=== PATIENT | female | born 1975 | race Caucasian/White ===

== ENCOUNTER 2017-09-26 11:43 | Emergency (ER) | payer BC ==
[2017-09-26 12:02] VITALS: TEMP 98.9; BMI 81.8
--- NOTE | 2017-09-26 12:04 | PDOC ---
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 ) - History of Present Illness Timing/Duration: 24 hours, intermittent Severity: mild, moderate Modifying Factors: improves with: eating, rest Associated Symptoms: reports: denies symptoms <Hima Isaac S - Last Filed: 09/27/17 19:56> - General Chief Complaint: Chest Pain Stated Complaint: chest pain Time Seen by Provider: 09/26/17 11:47 Past History <Amy Contreras - Last Filed: 09/26/17 14:32> - Travel Traveled outside of the country in the last 30 days: No Close contact w/someone who was outside of country & ill: No <Hima Isaac - Last Filed: 09/27/17 19:56> - Past Medical History Allergies/Adverse Reactions: Allergies Allergy/AdvReac Type Severity Reaction Status Date / Time No Known Allergies Allergy Verified 09/26/17 11:49 Home Medications: Ambulatory Orders NK [No Known Home Medication] 09/26/17 Review of Systems - Review of Systems Able to Perform ROS?: Yes Is the patient limited [place] proficient: Yes Constitutional: No: Symptoms Reported, See HPI, Chills, Diaphoresis, Fever, Loss of Appetite, Malaise, Night Sweats, Weakness, Weight Stable, Unintentional Wgt. Loss, Unexplained wgt Loss, Other HEENTM: No: Symptoms Reported, See HPI, Eye Pain, Blurred Vision, Tearing, Recent change in vision, Double Vision, Cataracts, Ear Pain, Ocular Prothesis, Ear Discharge, Nose Pain, Nose Congestion, Tinnitus, Nose Bleeding, Hearing Loss , Throat Pain, Throat Swelling, Mouth Pain, Dental Problems, Difficulty Swallowing, Mouth Swelling, Other Respiratory: No: Symptoms reported, See HPI, Cough, Orthopnea, Shortness of Breath, SOB with Exertion, SOB at Rest, Stridor, Wheezing, Productive cough, Hemoptysis, Other Cardiac (ROS): Yes: See HPI ABD/GI: Yes: See HPI Musculoskeletal: No: Symptoms Reported, See HPI, Back Pain, Gout, Joint Pain, Joint Swelling, Muscle Pain, Muscle Weakness, Neck Pain, Joint Stiffness, Other Integumentary: No: Symptoms Reported, See HPI, Bruising, Change in Color, Change in Hair/Nails, Dryness, Erythema, Flushing, Lesions, Lumps, Pallor, Pruritus, Rash, Sweating, Other Hematologic/Lymphatic: No: Symptoms Reported, See HPI, Anemia, Blood Clots, Easy Bleeding, Easy Bruising, Bleeding Diathesis, Lymph Node Abnormalities, Swollen Glands, Other All Other Systems: Reviewed and Negative <Modeyvia,Remus S - Last Filed: 09/27/17 19:56> *Physical Exam - Vital Signs Last Vital Signs Temp Pulse Resp BP Pulse Ox 98.9 F 93 H 18 125/90 100 09/26/17 11:44 09/26/17 11:44 09/26/17 11:44 09/26/17 11:44 09/26/17 11:44 <Amy Contreras - Last Filed: 09/26/17 14:32> - Physical Exam General Appearance: Yes: Nourished, Appropriately Dressed. No: Apparent Distress HEENT: positive: ESTRELLITA Neck: positive: Normal Thyroid, Supple. negative: Carotid bruit Respiratory/Chest: positive: Lungs Clear, Normal Breath Sounds Cardiovascular: positive: Regular Rate, S1, S2 Female Pelvic Exam: negative: Urethra Gastrointestinal/Abdominal: positive: Normal Bowel Sounds Musculoskeletal: positive: Normal Inspection Extremity: positive: Normal Capillary Refill, Tender Integumentary: positive: Normal Color, Dry Neurologic: positive: Fully Oriented, Alert, Normal Mood/Affect <Moucha,Remus S - Last Filed: 09/27/17 19:56> Heart Score/ECG Review - Age Age: </= 45 - Risk Factors Risk Factors Heart Score: No Hx Diabetes, No Smoking History - ECG Intrepretation Rhythm: Regular Rhythm - [facility]: Normal - P and VT Prominent R with upright T in V1 (true posterior NM): No Delta Wave(s) Present: No WPW: No - ECG Impressions Torsades claribel Pointes: No WPW: No <Modeyvia,Remus S - Last Filed: 09/27/17 19:56> ED Treatment Course - LABORATORY CBC & Chemistry Diagram: 09/26/17 12:21 09/26/17 12:21 - ADDITIONAL ORDERS Additional order review: Laboratory Results 09/26/17 09/26/17 09/26/17 12:21 12:21 12:21 PT with INR 13.8 H INR 1.24 H Sodium 136 Potassium 3.9 Chloride 104 Carbon Dioxide 23 Anion Gap 9 BUN 8 Creatinine 0.5 L Creat Clearance w eGFR > 60 Random Glucose 104 Calcium 9.0 Total Bilirubin 0.5 AST 24 ALT 18 Alkaline Phosphatase 37 Troponin I < 0.03 Total Protein 6.7 Albumin 4.0 09/26/17 12:21 RBC 3.75 MCV 75.3 L MCHC 31.5 L RDW 15.1 MPV 8.8 Neutrophils % 66.5 Lymphocytes % 25.3 Monocytes % 6.3 Eosinophils % 1.1 Basophils % 0.8 <Amy Contreras - Last Filed: 09/26/17 14:32> - LABORATORY CBC & Chemistry Diagram: 09/26/17 12:21 09/26/17 12:21 <Hima Isaac S - Last Filed: 09/27/17 19:56> Medical Decision Making - Critical Care Time Total Critical Care Time (minutes): 30 Critical Care Statement: The care of this patient involved high complexity decision making to prevent further life threatening deterioration of the patient 's condition and/or to evaluate & treat vital organ system(s) failure or risk of failure. - Medical Decision Making Patient seen immediately from arrival. EKG done. Regular sinus rhythm. 86/min. Blood test done. X ray done. 2:15 experienced another discomfort in the epigastric area EKG 71/min. 09/26/17 14:32 <Amy Contreras - Last Filed: 09/26/17 14:32> - Critical Care Time Total Critical Care Time (minutes): 30 Critical Care Statement: The care of this patient involved high complexity decision making to prevent further life threatening deterioration of the patient 's condition and/or to evaluate & treat vital organ system(s) failure or risk of failure. - Medical Decision Making Patient observed for 4 hours every hour by the hour, Continuous cardiac monitoring Feels comfortable <Hima Isaac S - Last Filed: 09/27/17 19:56> *DC/Admit/Observation/Transfer <Amy Contreras - Last Filed: 09/26/17 14:32> - Discharge Dispostion Admit: No <PonchoHima Ghassan - Last Filed: 09/27/17 19:56> Diagnosis at time of Disposition: Anemia due to blood loss, chronic, Chest pain in adult - Discharge Dispostion Disposition: HOME Condition at time of disposition: Stable - Patient Instructions Printed Discharge Instructions: DI for Atypical Chest Pain, DI for Iron Deficiency Anemia-Adult Additional Instructions: Discuss with your bean dumper potential need for stress test. Discuss with your Perforator Typist MD about controlling the blood loss. Return to ER if any chest discomfort
[2017-09-26 12:29] LABS: BASO % 0.8 % (0-2.0); EOS % 1.1 % (0-4.5); HEMATOCRIT 28.3 % (32.4-45.2); HEMOGLOBIN 8.9 GM/dl (10.7-15.3); LYMPH % 25.3 % (8-40); MCH 23.7 pg (25.7-33.7); MCHC 31.5 g/dl (32.0-36.0); MEAN CELL VOLUME 75.3 fl (80-96); MEAN PLT VOLUME 8.8 fl (7.5-11.1); MONO % 6.3 % (3.8-10.2); NEUT % 66.5 % (42.8-82.8); PLATELET COUNT 302 K/MM3 (134-434); RBC 3.75 M/mm3 (3.60-5.2); RDW 15.1 % (11.6-15.6); WHITE BLOOD COUNT 4.9 K/mm3 (4.0-10.8)
[2017-09-26 13:31] LABS: ALK PHOS 37 U/L (32-92); ANION GAP 9 (8-16); BILIRUBIN,TOTAL 0.5 mg/dl (0.2-1.0); BLOOD UREA NITROGEN 8 mg/dl (7-18); CHLORIDE 104 mmol/L (98-107); CO2 23 mmol/L (22-28); GLUCOSE,RANDOM 104 mg/dl (74-106); SGOT/AST 24 U/L (10-42); SGPT/ALT 18 U/L (10-40); SODIUM 136 mmol/L (136-145); TOT PROT 6.7 g/dl (6.4-8.3)
[2017-09-26 13:57] LABS: INR 1.24 (0.82-1.09); PROTHROMBIN TIME (PATIENT) 13.8 SEC (10.2-13.0)
[2017-09-26 13:58] LABS: CREATININE 0.5 mg/dl (0.6-1.3); POTASSIUM 3.9 mmol/L (3.5-5.1)
[2017-09-26 15:21] VITALS: BP 117/68; PULSE 82
--- NOTE | 2017-09-27 15:58 | EKG ---
Test Reason : Blood Pressure : / mmHG Vent. Rate : 071 BPM Atrial Rate : 071 BPM P-R Int : 158 ms QRS Dur : 084 ms QT Int : 432 ms P-R-T Axes : 067 035 022 degrees QTc Int : 469 ms NORMAL SINUS RHYTHM NORMAL ECG NO PREVIOUS ECGS AVAILABLE Confirmed by MOHAN ARRIAGA, GHULAM ([id number]) on 09/27/2017 3:57:30 PM Referred By: FINESSE BRIDGES Confirmed By:GHULAM PRESTON MD
== END 2017-09-26 15:19 | disposition home or self-care (01) ==
LOC: FER 11:43
DX: D50.0 Iron deficiency anemia secondary to blood loss (chronic) (principal); R07.89 Other chest pain
CPT/HCPCS: 36415; 71045-TC-FY; 80053; 84484; 85025; 85610; 93005; 93970-TC; 99283-25

== ENCOUNTER 2018-09-20 09:42 | Observation (INO) | payer BC ==
--- NOTE | 2018-09-20 09:52 | PDOC ---
History of Present Illness - General Chief Complaint: Pain Stated Complaint: LEFT UPPER BACK & CHEST PAIN Time Seen by Provider: 09/20/18 09:52 History Source: Patient Exam Limitations: No Limitations - History of Present Illness Initial Comments: 09/20/18 10:08 Pt presents to the ED complaining of a one day history of pressure like pain in the middle of her upper back, as well as a several hour history of central chest pressure. Patient stats that she was in her usual state of health until last night, when she began to experience pressure between her shoulder blades that was constant, non radiating and moderate in severity. This was accompanied by a feeling of restlessness, and some mild, central discomfort in her chest. These symptoms improved and she was able to go to work this AM. While at work, she experienced another episode of chest discomfort and went to the nurse's office. The nurse found her blood pressure to be high and insisted that she come to the ED for evaluation. The symptoms have now completely resolved. Denies shortness of breath, diaphoresis, lightheadness, syncope, nausea or vomiting. 09/20/18 10:43 Past History - Past Medical History Allergies/Adverse Reactions: Allergies Allergy/AdvReac Type Severity Reaction Status Date / Time No Known Allergies Allergy Verified 09/20/18 09:56 Home Medications: Ambulatory Orders Naproxen Sodium [Aleve] 220 mg PO BID PRN 09/20/18 Tranexamic Acid 2 tab PO TID PRN 09/20/18 Anemia: Yes (iron deficiancy) COPD: No Diabetes: No - Suicide/Smoking/Psychosocial Hx Smoking History: Never smoked Hx Alcohol Use: No Drug/Substance Use Hx: No Substance Use Type: None Review of Systems - Review of Systems Able to Perform ROS?: Yes Is the patient limited [place] proficient: No Constitutional: No: Symptoms Reported, See HPI, Chills, Diaphoresis, Fever, Loss of Appetite, Malaise, Night Sweats, Weakness, Weight Stable, Unintentional Wgt. Loss, Unexplained wgt Loss, Other HEENTM: No: Symptoms Reported, See HPI, Eye Pain, Blurred Vision, Tearing, Recent change in vision, Double Vision, Cataracts, Ear Pain, Ocular Prothesis, Ear Discharge, Nose Pain, Nose Congestion, Tinnitus, Nose Bleeding, Hearing Loss , Throat Pain, Throat Swelling, Mouth Pain, Dental Problems, Difficulty Swallowing, Mouth Swelling, Other Respiratory: No: Symptoms reported, See HPI, Cough, Orthopnea, Shortness of Breath, SOB with Exertion, SOB at Rest, Stridor, Wheezing, Productive cough, Hemoptysis, Other Cardiac (ROS): Yes: Chest Tightness. No: Symptoms Reported, See HPI, Chest Pain , Edema, Irregular Heart Rate, Lightheadedness, Palpitations, Syncope, Other ABD/GI: No: Symptoms Reported, See HPI, Abdominal Distended, Abd. Pain w/ defecation, Blood Streaked Bowels, Constipated, Diarrhea, Difficulty Swallowing , Nausea, Poor Appetite, Poor Fluid Intake, Rectal Bleeding, Vomiting, Indigestion, Abdominal cramping, Tarry Stools, Other : No: Symptoms Reported, See HPI, Burning, Dysuria, Discharge, Frequency, Flank Pain, Hematuria, Incontinence, Pain, Urgency, Testicular Mass, Testicular Swelling, Lesions, Testicular Pain, Other Musculoskeletal: No: Symptoms Reported, See HPI, Back Pain, Gout, Joint Pain, Joint Swelling, Muscle Pain, Muscle Weakness, Neck Pain, Joint Stiffness, Other Integumentary: No: Symptoms Reported, See HPI, Bruising, Change in Color, Change in Hair/Nails, Dryness, Erythema, Flushing, Lesions, Lumps, Pallor, Pruritus, Rash, Sweating, Other *Physical Exam - Physical Exam General Appearance: Yes: Nourished, Appropriately Dressed HEENT: positive: Normal Voice Neck: positive: Supple Respiratory/Chest: positive: Lungs Clear, Normal Breath Sounds. negative: Chest Tender, Respiratory Distress, Accessory Muscle Use, Labored Respiration, Rapid RR, Decreased Breath Sounds, Paradoxal Breathing, Crackles, Rales, Rhonchi , Stridor, Wheezing, Hyperresonant, Dullness, Plerual Rub, Other Cardiovascular: positive: Regular Rhythm, Regular Rate, S1, S2 Gastrointestinal/Abdominal: positive: Flat, Soft. negative: Tender, Organomegaly, Pulsatile Mass, Increased Bowel Sounds, Decreased BS, Protuberent , Distended, Guarding, Rebound, Tenderness, Hernia, Mass, Hepatomegaly, Spleenomegaly, Other Musculoskeletal: positive: Normal Inspection Extremity: positive: Normal Inspection, Normal Range of Motion Integumentary: positive: Normal Color, Dry, Warm Neurologic: positive: Fully Oriented, Alert, Normal Mood/Affect ED Treatment Course - LABORATORY CBC & Chemistry Diagram: 04/05/19 11:22 09/20/18 10:30 Medical Decision Making - Medical Decision Making 09/20/18 10:48 Pt presents to the ED complaining of chest pressure and upper back pressure that have now resolved. PERC negative. HEART score will be 0 if troponin is negative. Will check troponin and likely discharge home if negatve. *DC/Admit/Observation/Transfer Diagnosis at time of Disposition: Anemia due to blood loss, chronic, Chest pain in adult - Discharge Dispostion Condition at time of disposition: Good Decision to Admit order: Yes - Referrals Referrals: Marium Sharp [Primary Care Provider] - - Patient Instructions - Post Discharge Activity
[2018-09-20 10:04] VITALS: BMI 26.4
[2018-09-20 10:57] LABS: ALBUMIN 4.3 g/dl (3.4-5.0); ALK PHOS 42 U/L (45-117); ANION GAP 8 MMOL/L (8-16); BLOOD UREA NITROGEN 11 mg/dl (7-18); CALCIUM 8.7 mg/dl (8.5-10); CHLORIDE 105 mmol/L (98-107); CO2 24 mmol/L (21-32); CREATININE 0.4 mg/dl (0.55-1.3); GLUCOSE,RANDOM 101 mg/dl (74-106); POTASSIUM 3.7 mmol/L (3.5-5.1); SGOT/AST 22 U/L (15-37); SGPT/ALT 24 U/L (13-61); SODIUM 137 mmol/L (136-145); TOT PROT 7.1 g/dl (6.4-8.2)
[2018-09-20] MEDS ORDERED: KETOROLAC TROMETHAMINE 30 MG/1 ML VIAL IVPUSH ONE (11:05)
[2018-09-20] MEDS ORDERED: KETOROLAC TROMETHAMINE 30 MG/1 ML VIAL ONE (11:06)
[2018-09-20 11:20] LABS: HEMATOCRIT 22.2 % (32.4-45.2); MCHC 28.8 g/dl (32.0-36.0); MEAN CELL VOLUME 56.5 fl (80-96); MEAN PLT VOLUME 10.5 fl (7.5-11.1); PLATELET COUNT 403 K/MM3 (134-434); RBC 3.93 M/mm3 (3.60-5.2); RDW 18.7 % (11.6-15.6); WHITE BLOOD COUNT 4.6 K/mm3 (4.0-10.8)
[2018-09-20 11:33] LABS: ADD RBC MORPHOLOGY YES; MCH 16.3 pg (25.7-33.7)
[2018-09-20 11:34] LABS: HEMOGLOBIN 6.4 GM/dl (10.7-15.3)
[2018-09-20 12:00] LABS: ANISOCYTOSIS 3+
[2018-09-20 12:01] LABS: OVALOCYTE 1+; PLATELET ESTIMATE INCREASED; TEAR DROP CELLS 1+
[2018-09-20 12:31] LABS: MEAN PLT VOLUME 8.9 fl (7.5-11.1)
[2018-09-20 12:35] LABS: BASO % 0.7 % (0-2.0); EOS % 1.4 % (0-4.5); HEMATOCRIT 21.1 % (32.4-45.2); LYMPH % 17.8 % (8-40); MCHC 28.5 g/dl (32.0-36.0); MEAN CELL VOLUME 56.5 fl (80-96); MONO % 4.8 % (3.8-10.2); NEUT % 75.3 % (42.8-82.8); PLATELET COUNT 237 K/MM3 (134-434); RBC 3.73 M/mm3 (3.60-5.2); WHITE BLOOD COUNT 5.4 K/mm3 (4.0-10.8)
[2018-09-20 12:38] LABS: MCH 16.1 pg (25.7-33.7)
--- NOTE | 2018-09-20 14:27 | HP ---
CHIEF COMPLAINT: Upper back pain and chest pain PCP: Dr. Marium Sharp, [place], [place] [phone] NATIONAL SALES ASSOCIATE: Dr. Panda, [place], [place] [phone] Bicycle Taxi Driver: Dr. Esau Cade, [facility] HISTORY OF PRESENT ILLNESS: 43 year-old female with a PMH significant for menorrhagia, uterine fibroids, iron deficiency anemia, Vitamin D deficiency, IBS, and GERD. Patient presented to the ED with complaint of chest pain. Last night patient experienced pain between her shoulder blades with she described as a tightness. She went to bed and woke up during the night with a feeling of her heart racing. She went back to sleep. 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 While at work she developed left-sided chest pain which radiated to the left axilla. She describes the pain as a tightness. She went to the nurse and her BP was 180/100. She came to the ED where she had another episode of between the shoulders back pain and left chest pain/pressure. Patient reports that the back pain last night was associated with sweating, but no episodes since. She has very mild b/l pedal edema. Patient has has been taking tranexamic acid for several years for her heavy periods. Menstruates every 28-30 days, lasts 7-9 days. Up until several months ago, she regularly passed very large clots. LMP 09/17/18. Has never been transfused. ER course was notable for: (1) Hgb 6.0, MCV 56.5 (2) ECG: sinus rhythm (3) Troponin neg x 1 (4) CXR: unremarkable Recent Travel: No PAST MEDICAL HISTORY: Menorrhagia Uterine fibroids Iron deficiency anemia Vitamin D deficiency IBS GERD Hemorrhoids PAST SURGICAL HISTORY: D&C x 3 years ago Colonoscopy 2006 (benign polyps) Social History: Single, school patrol Smoking: never Alcohol: occasional Drugs: no Family History: mother 79 with afib, hysterectomy 40s unknown reason; father 85 Stage III melanoma, HTN, TIA, perforated ulcer; brother 42 a&w; sister 47 a&w Allergies No Known Allergies Allergy (Verified 09/20/18 09:56) HOME MEDICATIONS: Home Medications Medication Instructions Recorded Naproxen Sodium [Aleve] 220 mg PO BID PRN 09/20/18 Tranexamic Acid 2 tab PO TID PRN 09/20/18 REVIEW OF SYSTEMS CONSTITUTIONAL: +fatigue Absent: fever, chills, diaphoresis, generalized weakness, malaise, loss of appetite, weight change HEENT: Absent: rhinorrhea, nasal congestion, throat pain, throat swelling, difficulty swallowing, mouth swelling, ear pain, eye pain, visual changes CARDIOVASCULAR: +left sided chest pain, upper back pain, rapid heart beat Absent: chest pain, syncope, palpitations, irregular heart rate, lightheadedness , peripheral edema RESPIRATORY: Absent: cough, shortness of breath, dyspnea with exertion, orthopnea, wheezing, stridor, hemoptysis GASTROINTESTINAL: Absent: abdominal pain, abdominal distension, nausea, vomiting, diarrhea, constipation, melena, hematochezia GENITOURINARY: Absent: dysuria, frequency, urgency, hesitancy, hematuria, flank pain, genital pain MUSCULOSKELETAL: Absent: myalgia, arthralgia, joint swelling, back pain, neck pain SKIN: Absent: rash, itching, pallor HEMATOLOGIC/IMMUNOLOGIC: Absent: easy bleeding, easy bruising, lymphadenopathy, frequent infections ENDOCRINE: Absent: unexplained weight gain, unexplained weight loss, heat intolerance, cold intolerance NEUROLOGIC: Absent: headache, focal weakness or paresthesias, dizziness, unsteady gait, seizure, mental status changes, bladder or bowel incontinence PSYCHIATRIC: Absent: anxiety, depression, suicidal or homicidal ideation, hallucinations. PHYSICAL EXAMINATION Vital Signs - 24 hr 09/20/18 09/20/18 09/20/18 09:50 11:10 14:06 Temperature 98.3 F 99.0 F Pulse Rate 102 H 84 Pulse Rate [ 72 Right Radial] Respiratory 18 16 16 Rate Blood Pressure 140/92 120/76 Blood Pressure 123/75 [Left Arm] O2 Sat by Pulse 100 100 99 Oximetry (%) GENERAL: Awake, alert, and fully oriented, in no acute distress. HEAD: Normal with no signs of trauma. EYES: Pupils equal, round and reactive to light, extraocular movements intact, sclera anicteric, pale conjunctiva. No lid lag. LUNGS: Breath sounds equal, clear to auscultation bilaterally. No wheezes, and no crackles. No accessory muscle use. HEART: Regular rate and rhythm, S1 and S2 +systolic murmur ABDOMEN: Soft, nontender, not distended, normoactive bowel sounds MUSCULOSKELETAL: Normal range of motion at all joints. No bony deformities or tenderness. No CVA tenderness. UPPER EXTREMITIES: 2+ pulses, warm, well-perfused. No cyanosis. No clubbing. No peripheral edema. LOWER EXTREMITIES: 2+ pulses, warm, well-perfused. No calf tenderness. Trace pedal edema NEUROLOGICAL: Cranial nerves II-XII intact. Normal speech. PSYCHIATRIC: Cooperative. Good eye contact. Appropriate mood and affect. SKIN: Pale, warm, dry Laboratory Results - last 24 hr 09/20/18 09/20/18 09/20/18 10:30 10:30 10:30 WBC 4.6 RBC 3.93 Hgb 6.4 L* Hct 22.2 L D MCV 56.5 L D MCH 16.3 L MCHC 28.8 L RDW 18.7 H D Plt Count 403 MPV 10.5 Absolute Neuts (auto) 3.5 Neutrophils % No Result Required. Neutrophils % (Manual) 80.0 Lymphocytes % No Result Required. Lymphocytes % (Manual) 15.0 Monocytes % Monocytes % (Manual) 5 Eosinophils % Basophils % Hypochromia 3+ Platelet Estimate Increased Poikilocytosis 3+ Anisocytosis 3+ Microcytosis 2+ Tear Drop Cells 1+ Ovalocytes 1+ Fragmented RBCs 1+ Schistocytes Few Sodium 137 Potassium 3.7 Chloride 105 Carbon Dioxide 24 Anion Gap 8 BUN 11 Creatinine 0.4 L Creat Clearance w eGFR 172.61 Random Glucose 101 Calcium 8.7 Total Bilirubin 1.0 AST 22 ALT 24 Alkaline Phosphatase 42 L Creatine Kinase 63 Troponin I < 0.03 Total Protein 7.1 Albumin 4.3 Crossmatch 09/20/18 09/20/18 11:22 12:53 WBC 5.4 RBC 3.73 Hgb 6.0 L* Hct 21.1 L MCV 56.5 L MCH 16.1 L MCHC 28.5 L RDW 19.0 H Plt Count 237 MPV 8.9 Absolute Neuts (auto) 4.0 Neutrophils % 75.3 Neutrophils % (Manual) Lymphocytes % 17.8 Lymphocytes % (Manual) Monocytes % 4.8 Monocytes % (Manual) Eosinophils % 1.4 Basophils % 0.7 Hypochromia Platelet Estimate Poikilocytosis Anisocytosis Microcytosis Tear Drop Cells Ovalocytes Fragmented RBCs Schistocytes Sodium Potassium Chloride Carbon Dioxide Anion Gap BUN Creatinine Creat Clearance w eGFR Random Glucose Calcium Total Bilirubin AST ALT Alkaline Phosphatase Creatine Kinase Troponin I Total Protein Albumin Crossmatch See Detail ASSESSMENT/PLAN 43 year-old female with a PMH significant for menorrhagia, uterine fibroids, iron deficiency anemia, Vitamin D deficiency, IBS, and GERD. Placed on observation for acute blood loss anemia and chest pain. Acute blood loss anemia Severe iron-deficiency anemia --secondary to fibroids; has been on transexamic acid for several years prescribed by NATIONAL SALES ASSOCIATE; up until few months ago passed large clots, more recently no clots; LMP 4/2, today is day#4 of cycle --no previous history of transfusion --Hgb 6.0 --transfuse 3U PRBC with lasix in between units Chest pain Back pain --likely related to severe anemia; had a similar presentation last year with negative cardiac workup; CTA negative for PE and negative for aortic dissection --initial troponin negative, two pending --ECG not suggestive of ischemic event --echo pending Pulmonary nodule --CTA: mildly irregular noncalcified pulmonary nodule v. focal scarring; if no previous for comparison to document stability, need PET/CT GERD --start protonix IBS --mildly constipated --bowel regimen FEN Fluids: PO intake adequate Electrolytes: replete as indicated Nutrition: low sodium DVT prophylaxis: hold chemical prophylaxis due to bleeding; SCDs, oob, ambulation Visit type - Emergency Visit Emergency Visit: Yes ED Registration Date: 09/20/18 Care time: The patient presented to the Emergency Department on the above date and was hospitalized for further evaluation of their emergent condition. - New Patient This patient is new to me today: Yes Date on this admission: 09/20/18 - Critical Care Critical Care patient: No
--- NOTE | 2018-09-20 15:34 | CON.CARD ---
Consult Consult Specialty:: Cardiology Referred by:: Medicine Reason for Consultation:: chest pain - History of Present Illness Chief Complaint: chest pain, back pain History of Present Illness: 43F h/o heavy periods, anemia on tranexamic acid p/w chest pain, back pain. Started last night, sudden feeling of tearing in her back/shoulders and chest pain as well. Lasted several hours, was on and off, went to work this morning and felt worse. No dyspnea, palps, edema. Has felt weak in the last few weeks which she has felt before in setting of anemia. Hgb in ER was 6.6, rechecked was 6. Still has mild intermittent back pain, denies chest pain. - Past Medical History ...LMP: 09/20/18 ...: No - Alcohol/Substance Use Hx Alcohol Use: No - Smoking History Smoking history: Never smoked Home Medications - Allergies Allergies/Adverse Reactions: Allergies Allergy/AdvReac Type Severity Reaction Status Date / Time No Known Allergies Allergy Verified 09/20/18 09:56 - Home Medications Home Medications: Ambulatory Orders Naproxen Sodium [Aleve] 220 mg PO BID PRN 09/20/18 Tranexamic Acid 2 tab PO TID PRN 09/20/18 Family Disease History - Family Disease History Family History: Unremarkable Review of Systems - Review of Systems Constitutional: reports: No Symptoms Eyes: reports: No Symptoms HENT: reports: No Symptoms Neck: reports: No Symptoms Cardiovascular: reports: No Symptoms Respiratory: reports: No Symptoms Gastrointestinal: reports: No Symptoms Genitourinary: reports: No Symptoms Musculoskeletal: reports: No Symptoms Integumentary: reports: No Symptoms Neurological: reports: No Symptoms Endocrine: reports: No Symptoms Hematology/Lymphatic: reports: No Symptoms Psychiatric: reports: No Symptoms Vital Signs: Vital Signs Temperature 99.0 F 09/20/18 14:06 Pulse Rate 84 09/20/18 14:06 Respiratory Rate 16 09/20/18 14:06 Blood Pressure 120/76 09/20/18 14:06 O2 Sat by Pulse Oximetry (%) 99 09/20/18 14:06 Constitutional: Yes: Well Nourished, No Distress, Calm Eyes: Yes: Conjunctiva Clear, EOM Intact HENT: Yes: Atraumatic, Normocephalic Neck: Yes: Supple, Trachea Midline Respiratory: Yes: Regular, CTA Bilaterally Gastrointestinal: Yes: Normal Bowel Sounds, Soft Cardiovascular: Yes: Regular Rate and Rhythm JVD: No Carotid Bruit: No PMI: Non-Displaced Heart Sounds: Yes: S1, S2 Murmur: Yes: Systolic Murmur Musculoskeletal: No: Back Pain Extremities: No: Cold Edema: No Peripheral Pulses WNL: Yes Peripheral Pulses: 2+ Left Doralis Pedis, 2+ Right Dorsalis Pedis Integumentary: No: Jaundice Neurological: Yes: Alert, Oriented Psychiatric: No: Agitated - Other Data Labs, Other Data: CBC, BMP 09/20/18 11:22 09/20/18 10:30 Troponin, BNP 09/20/18 10:30 Troponin I < 0.03 Troponin, BNP 09/20/18 10:30 Troponin I < 0.03 Assessment/Plan EKG: sinus, nl intervals, no ischemic changes tele: sinus 43F h/o heavy periods, anemia on tranexamic acid p/w chest pain, back pain, Hb 6.0 Chest pain, back pain - trop neg x 1, EKG no ischemic changes - not c/w ACS - per patient similar chest pain but not back pain a year ago - echo and stress at the time unremarkable - echo ordered - CTA pending Anemia, hx heavy periods - Hb 6.0 - may explain fatigue - transfuse per primary, hematology
[2018-09-20 17:14] LABS: INR 1.32 (0.82-1.09); PROTHROMBIN TIME (PATIENT) 14.7 SEC (10.2-13.0)
[2018-09-20] MEDS ORDERED: FUROSEMIDE 40 MG/4 ML INJECTABLE VIAL IVPUSH ONE ×2 (17:16→17:17)
[2018-09-20] MEDS ORDERED: SENNOSIDES/DOCUSATE COMBO (SENNA PLUS) TABLET (UD) PO SCH (22:00)
[2018-09-20] MEDS ORDERED: FUROSEMIDE 40 MG/4 ML INJECTABLE VIAL ONE (23:56)
[2018-09-21] MEDS ORDERED: TRANEXAMIC ACID PO PRN (07:51)
[2018-09-21 09:33] LABS: ALBUMIN 4.4 g/dl (3.4-5.0); ALK PHOS 40 U/L (45-117); ANION GAP 8 MMOL/L (8-16); BILIRUBIN,TOTAL 2.5 mg/dl (0.2-1); BLOOD UREA NITROGEN 11 mg/dl (7-18); CALCIUM 8.9 mg/dl (8.5-10); CHLORIDE 101 mmol/L (98-107); CO2 25 mmol/L (21-32); CREATININE 0.5 mg/dl (0.55-1.3); GLUCOSE,RANDOM 96 mg/dl (74-106); MAGNESIUM 2.1 mg/dL (1.8-2.4); POTASSIUM 3.5 mmol/L (3.5-5.1); SGOT/AST 23 U/L (15-37); SGPT/ALT 28 U/L (13-61); SODIUM 134 mmol/L (136-145); TOT PROT 7.5 g/dl (6.4-8.2)
[2018-09-21 09:40] LABS: EOS % 1.4 % (0-4.5); HEMATOCRIT 33.2 % (32.4-45.2); HEMOGLOBIN 9.4 GM/dl (10.7-15.3); LYMPH % 22.9 % (8-40); MCHC 28.2 g/dl (32.0-36.0); MEAN PLT VOLUME 8.8 fl (7.5-11.1); MONO % 6.2 % (3.8-10.2); NEUT % 68.5 % (42.8-82.8); PLATELET COUNT 252 K/MM3 (134-434); RBC 5.11 M/mm3 (3.60-5.2)
[2018-09-21 09:45] LABS: MCH 18.3 pg (25.7-33.7)
[2018-09-21] MEDS ORDERED: PANTOPRAZOLE 40 MG TABLET (FP) PO SCH (10:00)
[2018-09-21 11:15] VITALS: BP 100/62; PULSE 78; TEMP 98
--- NOTE | 2018-09-21 11:38 | EKG ---
Test Reason : Blood Pressure : / mmHG Vent. Rate : 080 BPM Atrial Rate : 080 BPM P-R Int : 156 ms QRS Dur : 084 ms QT Int : 402 ms P-R-T Axes : 062 027 011 degrees QTc Int : 463 ms NORMAL SINUS RHYTHM NORMAL ECG WHEN COMPARED WITH ECG OF 26-SEP-2017 14:08, NO SIGNIFICANT CHANGE WAS FOUND Confirmed by JENNY CARREON MD ([id number]) on 09/21/2018 11:38:00 AM Referred By: Confirmed By:JENNY CARREON MD
--- NOTE | 2018-09-21 13:29 | DS ---
Physical Exam: SUBJECTIVE: Patient seen and examined OBJECTIVE: Vital Signs Period Temp Pulse Resp BP Sys/Wells Pulse Ox Last 24 Hr 98 F-99.0 F 69-84 16-19 100-120/62-76 99-100 PHYSICAL EXAM GENERAL: The patient is awake, alert, and fully oriented, in no acute distress. HEAD: Normal with no signs of trauma. EYES: PERRL, extraocular movements intact, sclera anicteric, conjunctiva clear. ENT: Ears normal, nares patent, oropharynx clear without exudates, moist mucous membranes. NECK: Trachea midline, full range of motion, supple. LUNGS: Breath sounds equal, clear to auscultation bilaterally, no wheezes, no crackles, no accessory muscle use. HEART: Regular rate and rhythm, S1, S2 without murmur, rub or gallop. ABDOMEN: Soft, nontender, nondistended, normoactive bowel sounds, no guarding, no rebound, no hepatosplenomegaly, no masses. EXTREMITIES: 2+ pulses, warm, well-perfused, no edema. NEUROLOGICAL: Cranial nerves II through XII grossly intact. Normal speech, gait not observed. PSYCH: Normal mood, normal affect. SKIN: Warm, dry, normal turgor, no rashes or lesions noted. LABS Laboratory Results - last 24 hr 09/20/18 09/20/18 09/20/18 12:53 14:24 14:28 WBC RBC Hgb Hct MCV MCH MCHC RDW Plt Count MPV Absolute Neuts (auto) Neutrophils % Lymphocytes % Monocytes % Eosinophils % Basophils % PT with INR INR PTT (Actin FS) Sodium Potassium Chloride Carbon Dioxide Anion Gap BUN Creatinine Creat Clearance w eGFR Random Glucose Calcium Magnesium Total Bilirubin AST ALT Alkaline Phosphatase Troponin I < 0.03 Total Protein Albumin TSH Blood Type O NEGATIVE O NEGATIVE Antibody Screen Negative Crossmatch See Detail 09/20/18 09/20/18 09/20/18 14:28 14:28 16:28 WBC RBC Hgb Hct MCV MCH MCHC RDW Plt Count MPV Absolute Neuts (auto) Neutrophils % Lymphocytes % Monocytes % Eosinophils % Basophils % PT with INR 14.7 H INR 1.32 H PTT (Actin FS) 27.0 Sodium Potassium Chloride Carbon Dioxide Anion Gap BUN Creatinine Creat Clearance w eGFR Random Glucose Calcium Magnesium Total Bilirubin AST ALT Alkaline Phosphatase Troponin I Total Protein Albumin TSH 1.33 Blood Type Antibody Screen Crossmatch 09/21/18 09/21/18 09/21/18 07:30 07:30 07:30 WBC 6.0 RBC 5.11 Hgb 9.4 L Hct 33.2 D MCV 65.0 L MCH 18.3 L MCHC 28.2 L RDW 28.0 H Plt Count 252 MPV 8.8 Absolute Neuts (auto) 4.0 Neutrophils % 68.5 Lymphocytes % 22.9 Monocytes % 6.2 Eosinophils % 1.4 Basophils % 1.0 PT with INR INR PTT (Actin FS) Sodium 134 L Potassium 3.5 Chloride 101 Carbon Dioxide 25 Anion Gap 8 BUN 11 Creatinine 0.5 L Creat Clearance w eGFR 133.42 Random Glucose 96 Calcium 8.9 Magnesium 2.1 Total Bilirubin 2.5 H AST 23 ALT 28 Alkaline Phosphatase 40 L Troponin I < 0.03 Total Protein 7.5 Albumin 4.4 TSH Blood Type Antibody Screen Crossmatch HOSPITAL COURSE: Date of Admission:09/20/18 Date of Discharge: 09/21/18 Minutes to complete discharge: 35 Discharge Summary Reason For Visit: CHEST PAIN, ANEMIA DUE TO CHRONIC BLOOD LOSS Current Active Problems Anemia due to blood loss, chronic (Acute) Chest pain in adult (Acute) Condition: Improved - Instructions Diet, Activity, Other Instructions: As discussed it is recommended you follow up with the following providers: 1. Your meeting specialist, Dr. Esau Cade at [facility]; 2. Dr. Charlene Salamanca, sewing trimmer/oncologist; her contact information is enclosed; she will be able to guide you with respect to acute blood loss anemia , iron deficiency, and the pulmonary nodule seen on CT imaging during your hospital stay; 3. Your primary dyslexia teacher. Return to the emergency department for any new or worsening symptoms. Referrals: Charlene Salamanca MD [Staff Physician] - 2 Weeks Disposition: HOME - Home Medications Comprehensive Discharge Medication List: Ambulatory Orders Naproxen Sodium [Aleve] 220 mg PO BID PRN 09/20/18 Tranexamic Acid 2 tab PO TID PRN 09/20/18 This patient is new to me today: No Emergency Visit: Yes ED Registration Date: 09/20/18 Care time: The patient presented to the Emergency Department on the above date and was hospitalized for further evaluation of their emergent condition. Critical Care patient: No - Discharge Referral Referred to [facility] No
== END 2018-09-21 13:40 | disposition home or self-care (01) ==
LOC: FER 09:42 → FM/S 12:59
PROVIDERS: ADMIT Internal Medicine; ATTEND Nurse Practitioner Acute Care
PROC: 30233N1 Transfusion of Nonautologous Red Blood Cells into Peripheral Vein, Percutaneous Approach (ICD-10-PCS; principal; 2018-09-20)
PROC: 3E0333Z Introduction of Anti-inflammatory into Peripheral Vein, Percutaneous Approach (ICD-10-PCS; 2018-09-20)
PROC: 3E033GC Introduction of Other Therapeutic Substance into Peripheral Vein, Percutaneous Approach (ICD-10-PCS; 2018-09-20)
DX: D50.0 Iron deficiency anemia secondary to blood loss (chronic) (principal); R07.89 Other chest pain; M54.6 Pain in thoracic spine; R91.1 Solitary pulmonary nodule; K21.9 Gastro-esophageal reflux disease without esophagitis; K58.9 Irritable bowel syndrome, unspecified; Z87.42 Personal history of other diseases of the female genital tract
CPT/HCPCS: 36415; 36430; 36511; 71275-TC; 80053; 82550; 83735; 84443; 84484; 85025; 85610; 85730; 86850; 86900; 86901; 86922; 93005; 99283-25; G0378; P9038; P9058